=== PATIENT | female | born 1985 | race Caucasian/White ===

== ENCOUNTER 2016-07-05 11:32 | Emergency (ER) | payer OTHER ==
[2016-07-05 11:37] VITALS: BP 171/106; PULSE 98; TEMP 98.7; BMI 34.3
--- NOTE | 2016-07-05 12:30 | PDOC ---
History of Present Illness - General Chief Complaint: Cold Symptoms Stated Complaint: COUGH, FEVER, BACK PAIN Time Seen by Provider: 07/05/16 12:00 History Source: Patient Exam Limitations: No Limitations - History of Present Illness Initial Comments: CHIEF COMPLAINT: 30 y/o afebrile female with PMH HTN c/o fever, body aches, runny nose and nasal congestion for the past 4 days. HISTORY OF PRESENT ILLNESS: The patient states her highest fever is 100.8 at home for which she took tylenol. She denies INGRAM, neck pain, changes in vision/ hearing, n/v/d, SOB, productive cough, hemoptysis, CP, abd pain. She did not have the flu shot this year. Vital signs on arrival are notable for BP of 171/106. REVIEW OF SYSTEMS: GENERAL/CONSTITUTIONAL: + fever/chills. No weakness. No weight change. +body aches. HEAD, EYES, EARS, NOSE AND THROAT: No change in vision. No ear pain or discharge. No sore throat. +runny nose and nasal congestion CARDIOVASCULAR: No chest pain or shortness of breath. RESPIRATORY: +non produtive cough. No wheezing, or hemoptysis. GASTROINTESTINAL: No abd pain, nausea, vomiting, diarrhea. GENITOURINARY: No dysuria, frequency, or change in urination. MUSCULOSKELETAL: No joint or muscle swelling or pain. No neck or back pain. SKIN: No rash or easy bruising. NEUROLOGIC: No headache, vertigo, loss of consciousness, or loss of sensation. PSYCHIATRIC: No depression or anxiety. ENDOCRINE: No increased thirst. No abnormal weight change. HEMATOLOGIC/LYMPHATIC: No anemia, easy bleeding, or history of blood clots. ALLERGIC/IMMUNOLOGIC: No hives or skin allergy. No latex allergy. PHYSICAL EXAM: GENERAL: The patient is awake, alert, and fully oriented, in no acute distress. She is well appearing, ambulatory, in NAD or obvious discomfort. HEAD: Normal with no signs of trauma. ENT: Pupils equal, round and reactive to light, extraocular movements intact, sclera anicteric, conjunctiva clear. Neck supple. Clear rhinorrhea. LUNGS: Clear to auscultation bilaterally. Normal excursion. No respiratory distress or use of accessory muscles. CV: RRR, S1/S2, no MRG. Cap refill < 2 sec. ABDOMEN: Soft, non-distended, non-tender even to deep palpation, no hepatomegaly or splenomegaly, no masses. EXTREMITIES: Normal range of motion, no edema. NEUROLOGICAL: Normal speech, normal gait. CN II-XII grossly intact. PSYCH: Normal mood, normal affect. SKIN: Warm, dry, normal turgor, no rashes or lesions noted. Past History - Past Medical History Allergies/Adverse Reactions: Allergies Allergy/AdvReac Type Severity Reaction Status Date / Time No Known Allergies Allergy Verified 07/05/16 11:33 Home Medications: Ambulatory Orders NK [No Known Home Medication] 07/05/16 Disorders: Yes (kidney stones) HTN: Yes - Psycho/Social/Smoking Cessation Hx Anxiety: No Suicidal Ideation: No Smoking Status: No Smoking History: Never smoked Have you smoked in the past 12 months: No Number of Cigarettes Smoked Daily: 3 Information on smoking cessation initiated: No 'Breaking Loose' booklet given: 04/26/16 Hx Alcohol Use: No Drug/Substance Use Hx: No Substance Use Type: None *Physical Exam - Vital Signs Last Vital Signs Temp Pulse Resp BP Pulse Ox 98.7 F 98 H 18 171/106 100 07/05/16 11:34 07/05/16 11:34 07/05/16 11:34 07/05/16 11:34 07/05/16 11:34 Medical Decision Making - Medical Decision Making A/P: 30 y/o afebrile female with influenza vs viral URI. Plan is as follows: 1. hcg 2. Influenza swab hcg - negative Influenza A&B - negative The patient was given her results and dx of viral URI. Gave Motrin prior to discharge. Suggested she alternate between motrin and tylenol for fever/body aches and take OTC cough medicine for cough. Instructed her to take tea with honey and lemon, use cough drops and drink plenty of fluids to help with cough. Suggested she f/u with her PCP and return to the ER with any worsening or concerning symptoms. The patient verbalizes understanding of all instructions, has no further questions and is awaiting discharge. *DC/Admit/Observation/Transfer Diagnosis at time of Disposition: Viral upper respiratory tract infection with cough - Discharge Dispostion Disposition: HOME Condition at time of disposition: Good - Referrals Referrals: Bishop Joy MD [Primary Care Provider] - Call tomorrow - Patient Instructions Printed Discharge Instructions: DI for Viral Upper Respiratory Infection -- Adult Additional Instructions: Discharge Instructions: -Take tylenol every 4 hours for fever -Take Motrin with food every 6 hours for pain/fever -Drink plenty of fluids -Drink tea with honey and lemon and use cough drops to help with cough -Take over the counter cough medicine for cough -Follow up with Dr. Moncada within 1 week -Return to the ER with any worsening or concerning symptoms - Post Discharge Activity Work/School Note: Back to Work
[2016-07-05] MEDS ORDERED: IBUPROFEN 600 MG TABLET (FP) PO ONE ×2 (13:13→13:18)
== END 2016-07-05 13:27 | disposition home or self-care (01) ==
LOC: JERFT 11:32
DX: J06.9 Acute upper respiratory infection, unspecified (principal); B97.89 Other viral agents as the cause of diseases classified elsewhere; I10 Essential (primary) hypertension
CPT/HCPCS: 84703; 87804; 99281-25

== ENCOUNTER 2017-01-08 15:43 | Emergency (ER) | payer OTHER ==
[2017-01-08 15:48] VITALS: TEMP 98.5; BMI 36.0
--- NOTE | 2017-01-08 15:53 | PDOC ---
History of Present Illness <Ana Good - Last Filed: 01/08/17 15:53> - General History Source: Patient, Old Records Exam Limitations: No Limitations - History of Present Illness Initial Comments: 01/08/17 16:35 The patient is a 31 year old female with a past medical history of kidney stones , HTN who presents to the emergency department today with cough for one week, wheezing, and shortness of breath since this morning. The patient notes that her shortness of breath is worse on exertion. Patients cough is productive with white sputum. She reports mild associated midsternal chest pain. Patients LMP was 3 weeks ago. She has been on Lisinopril since June 2016. She denies fever and orthopnea. <Anatoly Bennett - Last Filed: 01/08/17 17:10> - General Chief Complaint: Wheezing Stated Complaint: Cough, wheezing Time Seen by Provider: 01/08/17 15:53 Past History - Past Medical History Disorders: Yes (kidney stones) HTN: Yes - Psycho/Social/Smoking Cessation Hx Anxiety: No Suicidal Ideation: No Smoking Status: No Smoking History: Never smoked Have you smoked in the past 12 months: No Number of Cigarettes Smoked Daily: 3 Information on smoking cessation initiated: No 'Breaking Loose' booklet given: 04/26/16 Hx Alcohol Use: No Drug/Substance Use Hx: No Substance Use Type: None <Ana Good - Last Filed: 01/08/17 15:53> <Anatoly Bennett - Last Filed: 01/08/17 17:10> - Past Medical History Allergies/Adverse Reactions: Allergies Allergy/AdvReac Type Severity Reaction Status Date / Time No Known Allergies Allergy Verified 01/08/17 15:48 Home Medications: Ambulatory Orders Lisinopril/Hydrochlorothiazide [Lisinopril-Hctz 20-12.5 mg Tab] 1 each PO DAILY 01/08/17 Metoprolol Succinate [Toprol Xl] 50 mg PO DAILY 01/08/17 Review of Systems - Review of Systems Able to Perform ROS?: Yes Comments:: 01/08/17 16:36 GENERAL/CONSTITUTIONAL: No fever or chills. No weakness. HEAD, EYES, EARS, NOSE AND THROAT: No change in vision. No ear pain or discharge. No sore throat. CARDIOVASCULAR: (+) chest pain, shortness of breath. RESPIRATORY: (+) cough, wheezing. No hemoptysis. GASTROINTESTINAL: No nausea, vomiting, diarrhea or constipation. GENITOURINARY: No dysuria, frequency, or change in urination. MUSCULOSKELETAL: No joint or muscle swelling or pain. No neck or back pain. SKIN: No rash NEUROLOGIC: No headache, vertigo, loss of consciousness, or change in strength/ sensation. ENDOCRINE: No increased thirst. No abnormal weight change. HEMATOLOGIC/LYMPHATIC: No anemia, easy bleeding, or history of blood clots. ALLERGIC/IMMUNOLOGIC: No hives or skin allergy. <Anatoly Bennett - Last Filed: 01/08/17 17:10> *Physical Exam - Vital Signs Last Vital Signs Temp Pulse Resp BP Pulse Ox 98.5 F 91 H 18 156/100 99 01/08/17 15:45 01/08/17 15:45 01/08/17 15:45 01/08/17 15:45 01/08/17 15:45 <Ana Good - Last Filed: 01/08/17 15:53> - Vital Signs Last Vital Signs Temp Pulse Resp BP Pulse Ox 98.5 F 91 H 18 156/100 99 01/08/17 15:45 01/08/17 15:45 01/08/17 15:45 01/08/17 15:45 01/08/17 15:45 - Physical Exam Comments: 01/08/17 16:36 GENERAL: Awake, alert, and fully oriented, in no acute distress HEAD: No signs of trauma EYES: PERRLA, EOMI, sclera anicteric, conjunctiva clear ENT: (+) Auricles normal inspection, hearing grossly normal, nares patent, Erythema of posterior pharynx without exudates. NECK: Normal ROM, supple, no lymphadenopathy, JVD, or masses LUNGS: (+) Breath sounds equal, clear to auscultation bilaterally. Bilateral wheezes posteriorly and anteriorly, and no crackles HEART: Regular rate and rhythm, normal S1 and S2, no murmurs, rubs or gallops ABDOMEN: Soft, nontender, normoactive bowel sounds. No guarding, no rebound. No masses EXTREMITIES: Normal range of motion, no edema. No clubbing or cyanosis. No cords, erythema, or tenderness NEUROLOGICAL: Cranial nerves II through XII grossly intact. Normal speech, normal gait SKIN: Warm, Dry, normal turgor, no rashes or lesions noted. <Anatoly Bennett - Last Filed: 01/08/17 17:10> Heart Score/ECG Review - ECG Impressions Comment:: 01/08/17 16:55 Normal sinus rhythm. Normal ECG. Vent rate 79 bpm. <Anatoly Bennett - Last Filed: 01/08/17 17:10> ED Treatment Course - LABORATORY CBC & Chemistry Diagram: 01/08/17 16:45 01/08/17 16:45 <Anatoly Bennett - Last Filed: 01/08/17 17:10> *DC/Admit/Observation/Transfer - Attestations Scribe Attestion: 01/08/17 16:36 Documentation prepared by Anatoly Bennett, acting as medical superintendent for Ana Good MD. <Anatoly Bennett - Last Filed: 01/08/17 17:10>
[2017-01-08] MEDS ORDERED: ALBUTEROL SO4 2.5/IPRATROPIUM 0.5 INH SOL 3 ML VIAL.NEB. NEB ONE ×4 (16:35→18:30)
[2017-01-08 16:51] LABS: EOSINOPHIL 4.6 % (0-4.5); MCH 29.3 pg (25.7-33.7); MCHC 33.3 g/dl (32.0-36.0); MEAN CELL VOLUME 88.1 fl (80-96); MEAN PLT VOLUME 7.9 fl (7.5-11.1); NEUTROPHILS 70.3 % (42.8-82.8); PLATELET COUNT 299 K/MM3 (134-434); RDW 12.6 % (11.6-15.6); WHITE BLOOD COUNT 6.9 K/mm3 (4.0-10.0)
[2017-01-08 17:25] LABS: ALBUMIN 3.4 g/dl (3.4-5.0); ANION GAP 8 (8-16); CALCIUM 9.1 mg/dL (8.5-10.1); CO2 27 mmol/L (21-32); CREATININE 0.6 mg/dL (0.55-1.02); GLUCOSE,RANDOM 96 mg/dL (74-106); SGOT/AST 15 U/L (15-37); SGPT/ALT 19 U/L (12-78)
[2017-01-08 17:27] LABS: ALK PHOS 70 U/L (45-117); BILIRUBIN,TOTAL 0.2 mg/dL (0.2-1.0); TOT PROT 7.2 g/dl (6.4-8.2)
[2017-01-08 18:29] VITALS: BP 153/86; PULSE 92
[2017-01-08] MEDS ORDERED: predniSONE 20 MG TABLET (UD) PO SCH (18:30)
[2017-01-08] MEDS ORDERED: predniSONE 20 MG TABLET (UD) ONE (18:34)
[2017-01-08] MEDS ORDERED: predniSONE 10 MG TABLET (UD) ONE (18:34)
[2017-01-08] MEDS ORDERED: AZITHROMYCIN 250 MG TABLET (FP) PO ONE (19:55)
[2017-01-08] MEDS ORDERED: ALBUTEROL SO4 0.083% IH SOL 2.5 MG/3 ML VIAL.NEB. NEB ONE ×2 (19:55→20:21)
[2017-01-08] MEDS ORDERED: MAGNESIUM SULF 50% (8.12 MEQ/2 ML-1 GM VIAL) IVPB ONE (19:55)
[2017-01-08] MEDS ORDERED: MAGNESIUM SULF 50% (8.12 MEQ/2 ML-1 GM VIAL) ONE (20:22)
[2017-01-08] MEDS ORDERED: AZITHROMYCIN 250 MG TABLET (FP) ONE (20:22)
--- NOTE | 2017-01-08 21:20 | PDOC ---
*Physical Exam - Vital Signs Last Vital Signs Temp Pulse Resp BP Pulse Ox 98.5 F 92 H 18 153/86 98 01/08/17 15:45 01/08/17 18:28 01/08/17 18:28 01/08/17 18:28 01/08/17 18:28 ED Treatment Course - LABORATORY CBC & Chemistry Diagram: 01/08/17 16:45 01/08/17 16:45 - ADDITIONAL ORDERS Additional order review: Laboratory Results 01/08/17 01/08/17 01/08/17 18:25 16:45 16:40 D-Dimer < 200 Sodium 139 Potassium 3.5 Chloride 104 Carbon Dioxide 27 Anion Gap 8 BUN 10 D Creatinine 0.6 Creat Clearance w eGFR > 60 Random Glucose 96 D Calcium 9.1 Total Bilirubin 0.2 D AST 15 ALT 19 Alkaline Phosphatase 70 Total Protein 7.2 Albumin 3.4 Urine HCG, Qual Negative 01/08/17 16:45 RBC 4.54 MCV 88.1 MCHC 33.3 RDW 12.6 MPV 7.9 Neutrophils % 70.3 Lymphocytes % 16.3 Monocytes % 7.8 Eosinophils % 4.6 H D Basophils % 1.0 - Medications Given in the ED: ED Medications Discontinued Medications Generic Name Dose Route Start Last Admin Trade Name Freq PRN Reason Stop Dose Admin Albuterol Sulfate 2 amp 01/08/17 19:55 01/08/17 20:33 Ventolin 0.083% Nebulizer Soln - NEB 01/08/17 19:56 2 amp ONCE ONE Administration Albuterol/Ipratropium 1 amp 01/08/17 16:35 01/08/17 16:59 Duoneb - NEB 01/08/17 16:36 1 amp ONCE ONE Administration Albuterol/Ipratropium 1 amp 01/08/17 17:33 01/08/17 17:50 Duoneb - NEB 01/08/17 17:34 1 amp ONCE ONE Administration Albuterol/Ipratropium 1 amp 01/08/17 18:30 01/08/17 18:33 Duoneb - NEB 01/08/17 18:31 1 amp ONCE ONE Administration Azithromycin 500 mg 01/08/17 19:55 01/08/17 20:33 Zithromax - PO 01/08/17 19:56 500 mg ONCE ONE Administration Magnesium Sulfate 2 gm 01/08/17 19:55 01/08/17 20:33 Magnesium Sulfate IVPB 01/08/17 19:56 2 gm ONCE ONE Administration Medical Decision Making - Medical Decision Making 01/08/17 21:21 Sign-out received from outgoing Emergency Physician DR. Good Pt interviewed and examined Ancillary studies reviewed Case discussed in detail with oncoming Emergency Physician including history, physical exam and ancillary studies. 31-year-old female presents with wheezing and cough. The patient has been coughing for last several days but certainly wheezing today. She has no history of asthma though has family history of asthma. Patient was initially signout to me as persistently wheezing and awaiting labs. Chest x-rays reviewed by me, pending official radiology read which demonstrate stone infiltrates. No pleural effusions noted. Patient was given several nebulizers and IV magnesium and azithromycin for for wheezing and bronchitis. Patient has improved though has some minimal scant wheezing. She is breathing completely and unlabored. But given her persistent mild wheezing, this was discussed with the patient regards to disposition. After lengthy discussion, we had agreed we will trial an outpatient therapy with the prescriptions. If the patient's symptoms worsened or patient has difficulty breathing, patient understands return to the emergency department. *DC/Admit/Observation/Transfer Diagnosis at time of Disposition: Bronchitis - Discharge Dispostion Disposition: HOME Condition at time of disposition: Improved Admit: No - Prescriptions Prescriptions: Azithromycin 250 mg PO DAILY #4 tablet Prednisone [Deltasone] 60 mg PO DAILY #12 tablet Albuterol Sulfate Inhaler - [Ventolin HFA Inhaler -] 2 inh PO Q4H PRN #1 inh PRN Reason: Wheezing - Referrals Referrals: Bishop Joy MD [Primary Care Provider] - - Patient Instructions Printed Discharge Instructions: DI for Acute Bronchitis Additional Instructions: Please take 2 puffs of albuterol every 4 hours as needed for wheezing. Please continue to take the prednisone daily. Take the azithromycin daily. Call your doctor tomorrow. If you notice any worsening symptoms, please do not hesitate to return to the ER.
--- NOTE | 2017-01-09 12:38 | EKG ---
Test Reason : Blood Pressure : / mmHG Vent. Rate : 079 BPM Atrial Rate : 079 BPM P-R Int : 146 ms QRS Dur : 098 ms QT Int : 400 ms P-R-T Axes : 042 033 021 degrees QTc Int : 458 ms NORMAL SINUS RHYTHM NORMAL ECG WHEN COMPARED WITH ECG OF 21-NOV-2014 14:38, NO SIGNIFICANT CHANGE WAS FOUND Confirmed by ADIEL FREGOSO MD ([id number]) on 01/09/2017 12:37:50 PM Referred By: Confirmed By:ADIEL FRGEOSO MD
== END 2017-01-08 22:02 | disposition home or self-care (01) ==
LOC: JER 15:43
PROC: 3E0F7GC Introduction of Other Therapeutic Substance into Respiratory Tract, Via Natural or Artificial Opening (ICD-10-PCS; principal; 2017-01-08)
PROC: 3E0F7GC Introduction of Other Therapeutic Substance into Respiratory Tract, Via Natural or Artificial Opening (ICD-10-PCS; 2017-01-08)
PROC: 3E0F7GC Introduction of Other Therapeutic Substance into Respiratory Tract, Via Natural or Artificial Opening (ICD-10-PCS; 2017-01-08)
PROC: 3E0F7GC Introduction of Other Therapeutic Substance into Respiratory Tract, Via Natural or Artificial Opening (ICD-10-PCS; 2017-01-08)
PROC: 3E033GC Introduction of Other Therapeutic Substance into Peripheral Vein, Percutaneous Approach (ICD-10-PCS; 2017-01-08)
DX: J40 Bronchitis, not specified as acute or chronic (principal); I10 Essential (primary) hypertension
CPT/HCPCS: 36415; 71020-TC; 80053; 84703; 85025; 85379; 93005; 93010; 94640; 96374; 99284-25

== ENCOUNTER 2017-02-04 17:12 | Emergency (ER) | payer OTHER ==
[2017-02-04 17:18] VITALS: BP 170/127; PULSE 93; TEMP 98.2; BMI 43.2
--- NOTE | 2017-02-04 17:32 | PDOC ---
History of Present Illness - General Chief Complaint: Laceration Stated Complaint: INJURY TO LEG THUMB Time Seen by Provider: 02/04/17 17:26 - History of Present Illness Initial Comments: 02/04/17 17:47 Ms. Mata is a 31 year old female with a significant past medical history of HTN who presents to the emergency department after she cut her thumb chopping vegetables about an hour ago. She reports the knife was clean and her hand slipped while she was chopping. She has not had a tetanus shot that she can remember. The patient denies chest pain, shortness of breath, headache and dizziness. Denies fever, chills, nausea, vomit, diarrhea and constipation. Denies dysuria, frequency, urgency and hematuria. Allergies: NKDA Past History - Past Medical History Allergies/Adverse Reactions: Allergies Allergy/AdvReac Type Severity Reaction Status Date / Time No Known Allergies Allergy Verified 02/04/17 17:15 Home Medications: Ambulatory Orders Lisinopril/Hydrochlorothiazide [Lisinopril-Hctz 20-12.5 mg Tab] 1 each PO DAILY 01/08/17 Metoprolol Succinate [Toprol Xl] 50 mg PO DAILY 01/08/17 Disorders: Yes (kidney stones) HTN: Yes - Psycho/Social/Smoking Cessation Hx Anxiety: No Suicidal Ideation: No Smoking Status: No Smoking History: Former smoker Have you smoked in the past 12 months: No Number of Cigarettes Smoked Daily: 3 Information on smoking cessation initiated: No 'Breaking Loose' booklet given: 04/26/16 Hx Alcohol Use: No Drug/Substance Use Hx: No Substance Use Type: None Review of Systems - Review of Systems Comments:: 02/04/17 17:50 Patient complains of a laceration to her Left Thumb *Physical Exam - Vital Signs Last Vital Signs Temp Pulse Resp BP Pulse Ox 98.2 F 93 H 18 170/127 99 02/04/17 17:15 02/04/17 17:15 02/04/17 17:15 02/04/17 17:15 02/04/17 17:15 - Physical Exam Comments: 02/04/17 17:52 Patient has a 1 cm deep by 1 1/2 cm long laceration to the distal 1/2 cm of her L thumb. Cut is straight and clean. Procedures - Laceration/Wound Repair Left Anterior Medial Distal Dorsal 1st digit Wound Length: to 2.5 cm Wound Explored: clean Wound's Depth, Shape: superficial Irrigated w/ Saline: No Betadine Prep: No Wound Repaired With: Dermabond Layer Closure: No Sterile Dressing Applied: No Splint Applied: No Sling Applied: No Medical Decision Making - Medical Decision Making 02/04/17 17:54 Patient presented in no acute distress with laceration to L thumb. Laceration repaired with dermabond. 600 of tylenol given for pain control. Will D/C to home. *DC/Admit/Observation/Transfer Diagnosis at time of Disposition: Laceration of skin - Discharge Dispostion Disposition: HOME - Referrals Referrals: Sulaiman Parra MD [Primary Care Provider] - - Patient Instructions Printed Discharge Instructions: DI for Laceration Repair With Dermabond Additional Instructions: Please return if any pain not controllable with over the counter medication, fever, or other concerning symptoms. - Attestations Physician Attestion: 02/04/17 17:57 I, Dr. Igor Townsend, attest that this document has been prepared under my direction and personally reviewed by me in its entirety. I further attest, that it accurately reflects all work, treatment, procedures and medical decision -making performed by me.
[2017-02-04] MEDS ORDERED: ACETAMINOPHEN 325 MG TABLET (FP) PO ONE (17:47)
[2017-02-04] MEDS ORDERED: DIPHTH,PERTUSS(ACELL),TET 0.5 ML DISP.SYRIN IM ONE (17:49)
[2017-02-04] MEDS ORDERED: ACETAMINOPHEN 325 MG TABLET (FP) ONE (17:51)
== END 2017-02-04 18:03 | disposition home or self-care (01) ==
LOC: JER 17:12
PROC: 0HQGXZZ Repair Left Hand Skin, External Approach (ICD-10-PCS; principal; 2017-02-04)
DX: S61.012A Laceration without foreign body of left thumb without damage to nail, initial encounter (principal); W26.0XXA Contact with knife, initial encounter; Y93.G1 Activity, food preparation and clean up; Y92.9 Unspecified place or not applicable; I10 Essential (primary) hypertension; Z87.891 Personal history of nicotine dependence
CPT/HCPCS: 90715; 99283-25

== ENCOUNTER 2018-08-20 11:18 | Emergency (ER) | payer OTHER ==
[2018-08-20 11:26] VITALS: BP 162/90; PULSE 75; TEMP 98.4; BMI 32.2
[2018-08-20] MEDS ORDERED: SODIUM CHLORIDE 1,000 ML IV STA (13:40)
[2018-08-20 14:11] LABS: EOS % 1.8 % (0-4.5); HEMOGLOBIN 14.2 GM/dL (10.7-15.3); LYMPH % 21.8 % (8-40); MCH 33.1 pg (25.7-33.7); MCHC 35.6 g/dl (32.0-36.0); MEAN PLT VOLUME 8.1 fl (7.5-11.1); MONO % 5.3 % (3.8-10.2); NEUT % 70.1 % (42.8-82.8); PLATELET COUNT 266 K/MM3 (134-434); RBC 4.31 M/mm3 (3.60-5.2); RDW 12.6 % (11.6-15.6); WHITE BLOOD COUNT 5.8 K/mm3 (4.0-10.0)
--- NOTE | 2018-08-20 14:24 | PDOC ---
History of Present Illness - General Chief Complaint: Pain Stated Complaint: LF SIDE STOMACH PAIN Time Seen by Provider: 08/20/18 13:35 History Source: Patient Exam Limitations: Clinical Condition - History of Present Illness Initial Comments: 08/20/18 14:19 Patient with history of hemorrhoids present with complaint of 2 day history of left-sided sharp pain and 3 day history of dark stool. Patient denies rectal bleeding. Patient reported LMP 3 days ago on her menstrual period now. Patient denies any history of GI complaints of Crohn's or irritable bowel disease. Patient never had this symptoms in the past. Patient reported nausea but no vomiting. Denies constipation or diarrhea. Denies any other symptoms Past History - Past Medical History Allergies/Adverse Reactions: Allergies Allergy/AdvReac Type Severity Reaction Status Date / Time No Known Allergies Allergy Verified 02/04/17 17:15 Home Medications: Ambulatory Orders Lisinopril/Hydrochlorothiazide [Lisinopril-Hctz 20-12.5 mg Tab] 1 each PO DAILY 01/08/17 Metoprolol Succinate [Toprol Xl] 50 mg PO DAILY 01/08/17 COPD: No Disorders: Yes (kidney stones) HTN: Yes - Immunization History Immunization Up to Date: No - Suicide/Smoking/Psychosocial Hx Smoking Status: No Smoking History: Current some day smoker Have you smoked in the past 12 months: Yes Number of Cigarettes Smoked Daily: 5 Information on smoking cessation initiated: No 'Breaking Loose' booklet given: 04/26/16 Hx Alcohol Use: No Drug/Substance Use Hx: No Substance Use Type: None Review of Systems - Review of Systems Able to Perform ROS?: Yes Is the patient limited Albanian proficient: No Constitutional: No: Fever, Malaise, Weakness HEENTM: No: Symptoms Reported Respiratory: No: Symptoms reported Cardiac (ROS): No: Symptoms Reported ABD/GI: Yes: See HPI, Nausea, Abdominal cramping (LLQ pain), Tarry Stools. No: Abdominal Distended, Abd. Pain w/ defecation, Blood Streaked Bowels, Constipated , Diarrhea, Rectal Bleeding, Vomiting : No: Burning, Dysuria, Discharge, Frequency, Flank Pain, Urgency Musculoskeletal: No: Symptoms Reported, See HPI, Muscle Pain, Muscle Weakness All Other Systems: Reviewed and Negative *Physical Exam - Vital Signs Last Vital Signs Temp Pulse Resp BP Pulse Ox 98.4 F 75 18 162/90 99 08/20/18 11:24 08/20/18 11:24 08/20/18 11:24 08/20/18 11:24 08/20/18 11:24 - Physical Exam Comments: 08/20/18 14:21 GENERAL: Well developed, well nourished. Awake and alert. No acute distress. HEENT: Normocephalic, atraumatic. PERRLA, EOMI. No conjunctival pallor. Sclera are non-icteric. Moist mucous membranes. Oropharynx is clear. NECK: Supple. Full ROM. CARDIOVASCULAR: Regular rate and rhythm. No murmurs, rubs, or gallops. Distal pulses are 2+ and symmetric. PULMONARY: No evidence of respiratory distress. Lungs clear to auscultation bilaterally. No wheezing, rales or rhonchi. ABDOMINAL: Mild tenderness to palpation to left lower quadrant.Soft. Non- distended. No rebound or guarding. No organomegaly. Normoactive bowel sounds. MUSCULOSKELETAL Normal range of motion at all joints. SKIN: Warm and dry. no cynosisNormal capillary refill. No rashes. No jaundice. NEUROLOGICAL: Alert, awake, appropriate. Gait is normal without ataxia. PSYCHIATRIC: Cooperative. Good eye contact. Appropriate mood General Appearance: Yes: Nourished, Appropriately Dressed. No: Apparent Distress Moderate Sedation - Procedure Monitoring Vital Signs: Procedure Monitoring Vital Signs Temperature 98.4 F 08/20/18 11:24 Pulse Rate 75 08/20/18 11:24 Respiratory Rate 18 08/20/18 11:24 Blood Pressure 162/90 08/20/18 11:24 O2 Sat by Pulse Oximetry (%) 99 08/20/18 11:24 ED Treatment Course - LABORATORY CBC & Chemistry Diagram: 08/20/18 14:00 08/20/18 14:00 Medical Decision Making - Medical Decision Making 08/20/18 14:22 Patient with history of hemorrhoids present with complaint of 3 day history of dark stool in 2 day history of left lower quadrant pain with nausea. Exam significant for mild tenderness to left lower quadrant without guarding or rebound. Symptoms likely gastroenteritis versus colitis. CBC, CMP urine test ordered. UA urine culture ordered. Will consider abdominal CAT scan based on lab results. IV fluids with normal saline ordered 08/20/18 17:01 CBC, CMP labs normal. urine hcg negative. ABD/Pelvis US shows no acute pathololy. CT shows left ovarian cyst. Rectal exam done significant for smal fissure to rectum. fecal occult blood testing sent 08/20/18 17:31 fecal occult test negative. Patient stable with advise to increase fiber and fluid intake with GI follow-up for anal fissure with [employer] follow-up for ovarian cyst. Plan discussed with patient and pt agrees to plan and will follow-up *DC/Admit/Observation/Transfer Diagnosis at time of Disposition: Anal fissure, Dysmenorrhea - Discharge Dispostion Disposition: HOME Condition at time of disposition: Stable - Referrals Referrals: Bishop Joy MD [Primary Care Provider] - Yoan Wiley MD [Staff Physician] - Michael Yoon MD [Staff Physician] - - Patient Instructions Printed Discharge Instructions: Ovarian Cyst, Anal Fissure, DI for Anal Fissure Additional Instructions: Increase fluid and fiber intake. CAT scan showed small left ovarian cyst. Follow-up with referred [employer] Dr. Smith for cyst. Follow-up referred GI doctor Dr. Wiley. Stools. - Post Discharge Activity
[2018-08-20 14:30] LABS: HCG,QUALITATIVE URINE Negative
[2018-08-20 14:38] LABS: URINE APPEARANCE CLEAR; URINE BILIRUBIN NEGATIVE (<2.0 mg/dL); URINE COLOR STRAW; URINE GLUCOSE (UA) NEGATIVE (NEGATIVE); URINE KETONE NEGATIVE (NEGATIVE); URINE LEUK ESTERASE NEGATIVE (NEGATIVE); URINE NITRITE NEGATIVE (NEGATIVE); URINE PROTEIN NEGATIVE (NEGATIVE); URINE UROBILINOGEN NEGATIVE mg/dL (0.2-1.0)
[2018-08-20 14:40] LABS: EPI CELLS RARE /HPF (FEW); URINE MUCUS RARE
[2018-08-20 15:11] LABS: ALK PHOS 71 U/L (45-117); ANION GAP 6 MMOL/L (8-16); BILIRUBIN,TOTAL 0.4 mg/dL (0.2-1); BLOOD UREA NITROGEN 19 mg/dL (7-18); CALCIUM 9.6 mg/dL (8.5-10.1); CHLORIDE 104 mmol/L (98-107); CO2 25 mmol/L (21-32); CREATININE 0.6 mg/dL (0.55-1.3); GLUCOSE,RANDOM 81 mg/dL (74-106); POTASSIUM 4.8 mmol/L (3.5-5.1); SGOT/AST 39 U/L (15-37); SGPT/ALT 24 U/L (13-61); SODIUM 135 mmol/L (136-145); TOT PROT 7.8 g/dl (6.4-8.2)
--- NOTE | 2018-08-20 17:20 | PDOC ---
*Physical Exam - Vital Signs Last Vital Signs Temp Pulse Resp BP Pulse Ox 98.4 F 75 18 162/90 99 08/20/18 11:24 08/20/18 11:24 08/20/18 11:24 08/20/18 11:24 08/20/18 11:24 - Physical Exam Comments: . 08/20/18 17:17 pt awake alert lungs clear bilaterally heart rrr no mrg abd soft mild llq suprapubic ttp. no rebond no guarding. skin warma nd dry. no cva tenderenss. ED Treatment Course - LABORATORY CBC & Chemistry Diagram: 08/20/18 14:00 08/20/18 14:00 - ADDITIONAL ORDERS Additional order review: Laboratory Results 08/20/18 08/20/18 08/20/18 16:45 14:00 14:00 Sodium 135 L Potassium 4.8 Chloride 104 Carbon Dioxide 25 Anion Gap 6 L BUN 19 H Creatinine 0.6 Creat Clearance w eGFR > 60 Random Glucose 81 Calcium 9.6 Total Bilirubin 0.4 AST 39 H ALT 24 Alkaline Phosphatase 71 Total Protein 7.8 Albumin 4.0 Urine Color Urine Appearance Urine pH Ur Specific Gideon Urine Protein Urine Glucose (UA) Urine Ketones Urine Blood Urine Nitrite Urine Bilirubin Urine Urobilinogen Ur Leukocyte Esterase Urine WBC (Auto) Urine RBC (Auto) Ur Epithelial Cells Urine Mucus Urine HCG, Qual Stool Occult Blood Negative Blood Type O POSITIVE Antibody Screen Negative 08/20/18 14:00 Sodium Potassium Chloride Carbon Dioxide Anion Gap BUN Creatinine Creat Clearance w eGFR Random Glucose Calcium Total Bilirubin AST ALT Alkaline Phosphatase Total Protein Albumin Urine Color Straw Urine Appearance Clear Urine pH 6.0 Ur Specific Gideon 1.010 Urine Protein Negative Urine Glucose (UA) Negative Urine Ketones Negative Urine Blood 1+ H Urine Nitrite Negative Urine Bilirubin Negative Urine Urobilinogen Negative Ur Leukocyte Esterase Negative Urine WBC (Auto) 1 Urine RBC (Auto) None Ur Epithelial Cells Rare Urine Mucus Rare Urine HCG, Qual Negative Stool Occult Blood Blood Type Antibody Screen 08/20/18 14:00 RBC 4.31 MCV 93.0 MCHC 35.6 RDW 12.6 MPV 8.1 Neutrophils % 70.1 Lymphocytes % 21.8 D Monocytes % 5.3 Eosinophils % 1.8 Basophils % 1.0 - Medications Given in the ED: ED Medications Discontinued Medications Generic Name Dose Route Start Last Admin Trade Name Freq PRN Reason Stop Dose Admin Sodium Chloride 1,000 mls @ 1,000 mls/hr 08/20/18 13:40 08/20/18 16:19 Normal Saline - IV 08/20/18 14:39 1,000 mls/hr ASDIR STA Administration Medical Decision Making - Medical Decision Making 08/20/18 17:17 08/20/18 17:13 32 yo F with no pmhx here with co dark stool, mild low abd pain. pt states she has had dark stool. no n/v no peptobismal. no change to her diet. does have h/o hemorrhoids, but denies bright red blood. no h/o peptic ulcers. pain is mild. pt is currently menstruating. on exam pt awake alert lungs clear bilaterally heart rrr no mrg abd soft mild llq suprapubic ttp. no rebond no guarding. skin warma nd dry. no cva tenderenss. rectal exam with anal fissure at 12 oclock position, internal hemorrhoids, no thromboses. no gross blood. min stool on exam. differential colitis, diverticulitis. anal fissure although dark blood unlikley. dysmennorhea. plan guiac ct a/p guiac negative. ct negative. dc home fu cable spooler and gi. pt seen and examined in conjunction [facility] MIKE Esquivel agree with plan 08/20/18 17:18 labs normal guiac negative. occult. ct normal. except ovarian cyst. recommend cable spooler followup. 08/20/18 17:21 *DC/Admit/Observation/Transfer Diagnosis at time of Disposition: Anal fissure, Dysmenorrhea - Discharge Dispostion Disposition: HOME Condition at time of disposition: Stable - Referrals Referrals: Bishop Joy MD [Primary Care Provider] - - Patient Instructions - Post Discharge Activity
== END 2018-08-20 17:46 | disposition home or self-care (01) ==
LOC: JER 11:18
PROC: 3E0337Z Introduction of Electrolytic and Water Balance Substance into Peripheral Vein, Percutaneous Approach (ICD-10-PCS; principal; 2018-08-20)
DX: N83.202 Unspecified ovarian cyst, left side (principal); N94.6 Dysmenorrhea, unspecified; K60.2 Anal fissure, unspecified
CPT/HCPCS: 36415; 74177-TC; 80053; 81003; 81015; 82272; 84703; 85025; 86850; 86900; 86901; 87086; 96360; 99282-25; J7030

== ENCOUNTER 2020-02-24 18:51 | Emergency (ER) | payer OTHER ==
[2020-02-24 19:18] VITALS: TEMP 98.6; BMI 36.0
--- NOTE | 2020-02-24 19:55 | PDOC ---
History of Present Illness - History of Present Illness Initial Comments: 02/24/20 20:40 34yo F w/ long-standing h/o high blood pressure, previously on HCTZ/lopressor combination, currently on no anti-hypertensives, p/w asymptomatic HTN after her BP was discovered to be high at urgent care when she went for URI sx. She had been on the combination medication until she lost a significant amount of weight two years ago. She reports weight gain since COVID-19 pandemic started, but she was never restarted on the medication. Denies blurry vision or change in sight, headaches, tinnitus, loss of consciousness, or dizziness. Denies paresthesia, weakness, CP, or SOB. Reports having an IUD and had LMP 2 weeks ago. PMH: HTN PSH: C/S 11years ago FHx: 1st degree HTN, DM, CVD SHx: smokes 2-3 cigarrettes/month, social drinker, denies street drugs. 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 <Terrance Coppola - Last Filed: 02/24/20 21:16> <Lor Morocho - Last Filed: 02/24/20 22:30> - General Chief Complaint: Blood Pressure Problem Stated Complaint: HBP Time Seen by Provider: 02/24/20 19:54 Past History - Travel History Traveled outside of the country in the last 30 days: No Close contact w/someone who was outside of country & ill: No - Medical History COPD: No Disorders: Yes (kidney stones) HTN: Yes - Reproductive History Is Patient Now?: No - Immunization History Immunization Up to Date: No - Psycho-Social/Smoking History Smoking Status: No Smoking History: Never smoked Have you smoked in the past 12 months: Yes Number of Cigarettes Smoked Daily: 5 'Breaking Loose' booklet given: 04/26/16 - Substance Abuse Hx (Audit-C & DAST Scrn) How often the patient has a drink containing alcohol: Never Score: In Men: 4 or > Positive; In Women: 3 or > Positive: 0 Screen Result (Pos requires Nsg. Audit-10AR): Negative <Terrance Coppola - Last Filed: 02/24/20 21:16> <Lor Morocho - Last Filed: 02/24/20 22:30> - Medical History Allergies/Adverse Reactions: Allergies Allergy/AdvReac Type Severity Reaction Status Date / Time No Known Allergies Allergy Verified 02/24/20 19:11 Home Medications: Ambulatory Orders Lisinopril/Hydrochlorothiazide [Lisinopril-Hctz 20-12.5 mg Tab] 1 each PO DAILY 01/08/17 Metoprolol Succinate [Toprol Xl] 50 mg PO DAILY 01/08/17 Review of Systems - Review of Systems Able to Perform ROS?: Yes Is the patient limited [place]adian proficient: No Constitutional: No: Chills, Diaphoresis, Fever, Loss of Appetite, Weakness, Unintentional Wgt. Loss HEENTM: Yes: Nose Congestion, Throat Pain. No: Eye Pain, Blurred Vision, Recent change in vision, Double Vision, Ear Discharge, Nose Pain, Tinnitus, Hearing Loss, Throat Swelling, Mouth Pain, Difficulty Swallowing (some odynophagia due to sore throat) Respiratory: Yes: Cough. No: Orthopnea, Shortness of Breath, SOB with Exertion, SOB at Rest, Productive cough, Hemoptysis Cardiac (ROS): No: Chest Pain, Edema, Lightheadedness, Palpitations, Syncope ABD/GI: No: Abdominal Distended, Diarrhea, Nausea, Poor Fluid Intake, Vomiting : No: Burning, Dysuria, Discharge, Frequency, Flank Pain, Hematuria Musculoskeletal: No: Back Pain Integumentary: No: Dryness, Erythema Neurological: No: Headache, Numbness, Paresthesia, Seizure, Tingling, Tremors, Weakness, Unsteady Gait, Ataxia, Dizziness, Other Endocrine: No: Symptoms Reported Hematologic/Lymphatic: No: Symptoms Reported <Terrance Coppola - Last Filed: 02/24/20 21:16> *Physical Exam - Vital Signs Last Vital Signs Temp Pulse Resp BP Pulse Ox 98.6 F 82 18 194/117 H 100 02/24/20 19:08 02/24/20 19:08 02/24/20 19:08 02/24/20 19:08 02/24/20 19:08 - Physical Exam General Appearance: Yes: Nourished, Appropriately Dressed. No: Apparent Di stress HEENT: positive: MARK, Normal ENT Inspection, Normal Voice, TMs Normal, Pharynx Normal. negative: Pharyngeal Erythema, Tonsillar Exudate, Tonsillar Erythema, Nasal Congestion, Rhinorrhea, TM Bulging Neck: positive: Trachea midline, Supple. negative: Tender, Lymphadenopathy (R), Lymphadenopathy (L), Thyromegaly Respiratory/Chest: positive: Lungs Clear, Normal Breath Sounds. negative: Chest Tender, Respiratory Distress, Accessory Muscle Use, Labored Respiration Cardiovascular: positive: Regular Rhythm, Regular Rate, S1, S2. negative: Edema, JVD, Murmur Gastrointestinal/Abdominal: positive: Normal Bowel Sounds, Soft Musculoskeletal: positive: Normal Inspection. negative: CVA Tenderness, CVA Tenderness (R), CVA Tenderness (L) Extremity: positive: Normal Capillary Refill, Normal Inspection, Normal Range of Motion. 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 NML intact, Fully Oriented, Alert, Normal Mood/Affect, Normal Response, Motor Strength 5/5 Deep Tendon Reflexes: Knee (L): 2+, Knee (R): 2+ <Terrance Coppola - Last Filed: 02/24/20 21:16> - Vital Signs Last Vital Signs Temp Pulse Resp BP Pulse Ox 98.6 F 79 18 181/121 H 100 02/24/20 19:08 02/24/20 21:40 02/24/20 21:40 02/24/20 21:40 02/24/20 21:40 <Lor Morocho - Last Filed: 02/24/20 22:30> Heart Score/ECG Review - History History: Slightly suspicious - Electrocardiogram EKG: Normal - Age Age: </= 45 - Risk Factors Risk Factors Heart Score: Yes Hx Hypertension, Yes Positive family hx of cardiac disease Based on the list above the patient has:: 1-2 risk factors <Terrance Coppola - Last Filed: 02/24/20 21:16> Medical Decision Making - Medical Decision Making 02/24/20 20:55 Neuro ischemia -> normal neurological exam Extremity ischemia -> no paresthesia, numbness, change in motor function Pt's history of HTN -> will recheck pressure and, if normal, d/c w/ counseling and f/u w/ PCP. <Terrance Coppola - Last Filed: 02/24/20 21:16> Discharge - Discharge Information Problems reviewed: Yes - Admission No <Terrance Coppola - Last Filed: 02/24/20 21:16> <Lor Morocho - Last Filed: 02/24/20 22:30> - Discharge Information Clinical Impression/Diagnosis: Hypertension Qualifiers: Hypertension type: unspecified Qualified Code(s): I10 - Essential (primary) hypertension Condition: Stable Disposition: HOME - Follow up/Referral Referrals: Bishop Joy MD [Primary Care Provider] - - Patient Discharge Instructions Patient Printed Discharge Instructions: DI for High Blood Pressure, How to Monitor Your Blood Pressure at Home Additional Instructions: You came to the ED today with asymptomatic high blood pressure. We performed a physical exam and took your history. We decided to send you home with instructions to follow up with your primary doctor within 24 hours of leaving the ED. Please let the doctor's office know that this is a follow up ED visit, and you should be seen this week. Please come back to the ED with any sudden change in vision, loss of consciousness, chest pain, or other severe symptoms. - Post Discharge Activity
[2020-02-24 21:54] VITALS: BP 181/121; PULSE 79
--- NOTE | 2020-02-24 22:32 | PDOC ---
Documentation entered by Swati Pierre SCRIBE, acting as scribe for Lor Morocho MD. Lor Morocho MD: This documentation has been prepared by the scribe, Swati Ling SCRIBE, under my direction and personally reviewed by me in its entirety. I confirm that the documentation accurately reflects all work, treatment, procedures, and medical decision making performed by me. Attending Attestation - Resident Resident Name: Terrance Coppola - ED Attending Attestation I have performed the following: I have examined & evaluated the patient, The case was reviewed & discussed with the resident, I agree w/resident's findings & plan, Exceptions are as noted - HPI HPI: 02/24/20 21:41 The patient is a 34 year old female with a significant PMH of HTN (currently not on any medications, was previously) who prsents to the ED for evaluation of hypertension. Patient notes she went to urgent care for URI and was noted to have high blood pressure. Denies taking any medication such as decongestant riaz or to arrival. She was previously on HCTZ/lopressor combination but stopped it due to significant weight loss 2 years ago. Social: 2-3 cigarettes a month, social drinker - Physicial Exam PE: 02/24/20 21:18 General: well appearing, NAD HEENT: NCAT, mmm Chest: CTAB, good air entry, no wheezes rales or rhonchi CVS: + s1 s2, RRR - Medical Decision Making 02/24/20 21:19 34 yo F here with asymptomatic HTN, non-compliant with HTN meds x2 years, remainder of exam unremarkable. As per ACEP guidelines will not acutely lower BP at this time and no additional workup indicated. Patient counseled extensively on dangers of prolonged elevated BP and patient agreeable to call her PMD first thing tomorrow morning to arrange for f/u and likely restart HTN meds. Plan: -d/c with return precautions, recommend PMD f/u This clinical encounter is taking place during a federal and state health care emergency attributable to the novel Mello Virus pandemic. The [place] of the Department of Health and Human Services has declared, pursuant to the Public Health Service Act 319F-3 (42 U.S.C. 247d-6d), that a covered persons activities related to medical countermeasures against COVID-19 will be immune from liability under Federal and State law. Discharge - Discharge Information Problems reviewed: Yes Clinical Impression/Diagnosis: Hypertension Qualifiers: Hypertension type: unspecified Qualified Code(s): I10 - Essential (primary) hypertension Condition: Stable Disposition: HOME - Follow up/Referral Referrals: Bishop Joy MD [Primary Care Provider] - - Patient Discharge Instructions Patient Printed Discharge Instructions: DI for High Blood Pressure, How to Monitor Your Blood Pressure at Home Additional Instructions: You came to the ED today with asymptomatic high blood pressure. We performed a physical exam and took your history. We decided to send you home with instructions to follow up with your primary doctor within 24 hours of leaving the ED. Please let the doctor's office know that this is a follow up ED visit, and you should be seen this week. Please come back to the ED with any sudden change in vision, loss of consciousness, chest pain, or other severe symptoms. - Post Discharge Activity
== END 2020-02-24 21:40 | disposition home or self-care (01) ==
LOC: JER 18:51
DX: I10 Essential (primary) hypertension (principal)
CPT/HCPCS: 99282-25